=== PATIENT | female | born 1980 | race African-American/Black ===

== ENCOUNTER 2018-10-26 11:31 | Emergency (ER) | payer SELFPAY ==
[2014-08-20 10:07] VITALS: BP 161/89
== END 2018-10-26 11:40 | disposition left against medical advice (07) ==
LOC: ER 11:31
DX: M25.561 Pain in right knee (principal); Z53.21 Procedure and treatment not carried out due to patient leaving prior to being seen by health care provider

== ENCOUNTER → 2019-11-15 | Outpatient (CLI) | payer MEDICAID ==
[2014-08-20 10:07] VITALS: BP 161/89
--- NOTE | 2019-11-15 13:23 | RAD ---
AP and Lateral Views of the Chest 11/15/2019 12:00 AM Indication: Lung nodule Comparison: Chest radiograph August 12, 2013. Findings: No definitive lung nodules identified. There is no focal consolidation or infiltrate identified. The cardiomediastinal silhouette is within normal limits. There is no evidence of pneumothorax or pleural effusion. No acute osseous abnormalities are identified. Impression: No evidence of acute cardiopulmonary process. No definitive lung nodules identified. If there is a known lung nodule, it may be radiographically occult. Consider CT as clinically indicated. Electronically signed by: Bon Vaz MD (11/15/2019 1:20 PM) [id number]
== END | disposition home or self-care (01) ==
LOC: RAD 11:32
PROVIDERS: ATTEND Internal Medicine
DX: R91.1 Solitary pulmonary nodule (principal)
CPT/HCPCS: 71046

== ENCOUNTER → 2020-08-13 | Outpatient (CLI) | payer OTHER ==
[2014-08-20 10:07] VITALS: BP 161/89
--- NOTE | 2020-08-13 15:00 | KCIC ---
CHEST PA LATERAL INDICATION: Reason: Chest pain, difficulty breathing at night, Covid positive 2019 / Spl. Instructions: / History: . COMPARISON STUDY: None. FINDINGS: Lungs: Normal lung volume. No pulmonary mass or consolidation. The tracheobronchial tree and hilar structures are normal. Pleura: No pleural effusion or pneumothorax. Heart and Mediastinum: The cardiomediastinal silhouette is normal. The great vessels of the thorax are normal. Bones and Soft Tissues: The bones and soft tissues are within normal limits. IMPRESSION: No acute cardiopulmonary process. Electronically signed by: Magdiel Quintana MD (08/13/2020 2:57 PM) [id number]
== END ==
LOC: KCIC 13:14
PROVIDERS: ATTEND Internal Medicine
DX: R05 Cough (principal); R07.9 Chest pain, unspecified; R06.2 Wheezing
CPT/HCPCS: 71046

== ENCOUNTER → 2020-10-28 | Outpatient (CLI) | payer OTHER ==
[2014-08-20 10:07] VITALS: BP 161/89
--- NOTE | 2020-10-28 14:01 | KCIC ---
EXAM: CT CHEST WITHOUT CONTRAST HISTORY: Cough, fatigue post Covid COMPARISON: Chest radiograph 08/13/[address] chest 07/16/2010 TECHNIQUE: Helical CT of the chest performed without contrast. Coronal and sagittal reformats were o btained. One or more of the following individualized dose reduction techniques were utilized for this examinat ion: 1. Automated exposure control 2. Adjustment of the mA and/or kV according to patient size 3. Use of iterative reconstruction technique. FINDINGS: Thyroid gland and thoracic inlet: Normal. Heart and great vessels: The heart is normal in size. No pericardial effusion. Thoracic aorta is norm al in caliber. Mediastinum and osvaldo: There are calcified mediastinal and hilar lymph nodes. Lungs and pleura: The lungs are clear. No evidence of pneumonia or interstitial or emphysematous owen ges. No pleural effusion. Chest wall and axillae: Normal. No axillary lymphadenopathy. Upper abdomen: There are calcified splenic granulomas. Cholecystectomy clips are noted. There is some contrast or hyperdense material in the gastric body. Bones: No acute osseous abnormality. IMPRESSION: 1. No acute abnormality in the chest. 2. Sequela of prior granulomatous disease. Electronically signed by: Lay Cuevas MD (10/28/2020 1:58 PM) [id number]
== END ==
LOC: KCIC CT 09:57
PROVIDERS: ATTEND Internal Medicine
DX: R05 Cough (principal); Z90.49 Acquired absence of other specified parts of digestive tract
CPT/HCPCS: 71250

== ENCOUNTER → 2021-06-12 | Outpatient (CLI) | payer SELFPAY ==
[2014-08-20 10:07] VITALS: BP 161/89
== END ==
LOC: LAB 13:22
PROVIDERS: ATTEND Internal Medicine Pulmonary Disease
DX: R06.02 Shortness of breath (principal)
CPT/HCPCS: 36415; 85379